=== PATIENT | male | born 1985 | race African-American/Black ===

== ENCOUNTER 2017-08-22 16:01 | Observation (INO) ==
[2017-08-22] MEDS ORDERED: DOCUSATE SODIUM 100 MG CAPSULE PO PRN (16:07)
[2017-08-22] MEDS ORDERED: diphenhydrAMINE CAP 25 MG CAPSULE PO PRN (16:07)
[2017-08-22] MEDS ORDERED: MAGNESIUM SULF RIDER 2 GM in PREMIX 1 EACH IV PRN (16:07)
[2017-08-22] MEDS ORDERED: ONDANSETRON 4 MG/2 ML VIAL IV PRN (16:07)
[2017-08-22] MEDS ORDERED: ZALEPLON 5 MG CAPSULE PO PRN (16:07)
[2017-08-22] MEDS ORDERED: MAGNESIUM SULF RIDER 4 GM in PREMIX 1 EACH IV PRN (16:07)
[2017-08-22] MEDS ORDERED: MORPHINE 2 MG/1 ML SYRINGE IV PRN (16:07)
[2017-08-22] MEDS ORDERED: ACETAMINOPHEN 325 MG TABLET PO PRN (16:07)
[2017-08-22 16:47] LABS: Basophils # 0.1 10*3/uL (0.0-0.2); Basophils % 0.7 % (0.0-0.8); Eosinophils # 0.2 10*3/uL (0.0-0.87); Eosinophils % 2.3 % (0.00-10.9); Hematocrit 43.6 VOL% (42.0-52.0); Hemoglobin 14.1 GM/DL (14.0-18.0); Immature Granulocytes % 0.4 %; Immature Granulocytes Absolute 0.03 #; Lymphocytes % 43.2 % (21.2-54.2); Mean Corpuscular HGB Conc 32.3 GM/DL (32-36); Mean Corpuscular Hemoglobin 31 PG (27-34); Mean Corpuscular Volume 94.4 FL (87-102); Mean Platelet Volume 12.7 FL (9.6-12.0); Monocytes # 0.7 10*3/uL (0.11-0.8); Monocytes % 10.2 % (1.7-12.7); Neutrophils % 43.2 % (38.7-73.9); Platelet Count 189 T/CUMM (130-400); Red Blood Count 4.62 MC/CUMM (3.8-5.5); Red Cell Distribution Width 12.9 % (9.3-17.3)
[2017-08-22 17:23] LABS: Troponin I Only < 0.015 NG/ML (0.00-0.045)
[2017-08-22] MEDS: amLODIPine 2.5 MG TABLET PO SCH (17:53)
[2017-08-22 17:54] LABS: Albumin 4.4 G/DL (3.4-5.0); Bilirubin,Total 0.4 MG/DL (0.2-1.0); Calcium 9.1 MG/DL (8.5-10.1); Osmolality,Calculated 281.3 MOS/KG (273-304); Thyroid Stimulating Hormone 1.93 uIU/ml (0.358-3.74); Total Protein 7.6 G/DL (6.4-8.3)
[2017-08-22 19:27] LABS: Troponin I Only < 0.015 NG/ML (0.00-0.045)
[2017-08-23 00:48] LABS: Troponin I Only < 0.015 NG/ML (0.00-0.045)
[2017-08-23 05:42] LABS: Risk Ratio 3.67; VLDL CHOLESTEROL 9.8 MG/DL
[2017-08-23] MEDS ORDERED: PANTOPRAZOLE 40 MG TABLET PO SCH (09:00)
[2017-08-23] MEDS: amLODIPine 2.5 MG TABLET PO SCH (10:59)
[2017-08-23] MEDS ORDERED: KETOROLAC 30 MG/1 ML VIAL IV ONE (11:32)
[2017-08-23 12:11] VITALS: BP 128/73
== END 2017-08-23 12:53 | disposition home or self-care (01) ==
LOC: N.TELES
PROVIDERS: ADMIT Internal Medicine Cardiovascular Disease; ATTEND Internal Medicine Cardiovascular Disease